=== PATIENT | female | born 1950 | race Caucasian/White ===

== ENCOUNTER → 2016-07-20 | Outpatient (CLI) | payer MEDICARE, BC | END | disposition home or self-care (01) | LOC: HKI 08:50 | PROVIDERS: ATTEND Orthopaedic Surgery | DX: M87.152 Osteonecrosis due to drugs, left femur (principal); M25.552 Pain in left hip; M87.151 Osteonecrosis due to drugs, right femur | CPT/HCPCS: G0463 ==

== ENCOUNTER → 2016-09-07 | Outpatient (CLI) | payer MEDICARE, BC ==
[~2016-09-07] MED LIST: ESCI20TA PO; GABA300C16 PO; LEVO25TA59 PO; MORP15TA92 PO
== END | disposition home or self-care (01) ==
LOC: HKI 09:48
PROVIDERS: ATTEND Orthopaedic Surgery
DX: Z01.818 Encounter for other preprocedural examination (principal); M87.152 Osteonecrosis due to drugs, left femur; M25.552 Pain in left hip; M87.151 Osteonecrosis due to drugs, right femur
CPT/HCPCS: G0463

== ENCOUNTER 2016-09-13 05:37 | Inpatient (IN) | payer MEDICARE, BC ==
[2016-09-07 14:30] VITALS: BMI 23.5
[~2016-09-13] VITALS: Ht 170.2 cm; Wt 67.8 kg
[2016-09-13] VITALS (22 sets, daily range): BP systolic 128–163; BP diastolic 53–79; PULSE 72–88; RESP 14–25; Ht 170.2 cm; Wt 67.8 kg
[~2016-09-13 05:37] MED LIST changes: +MELOXICAM 15 MG TAB PO ONE; +PREGABALIN 300 MG PO X1 PO ONE; +TRANEXAMIC ACID 680 MG in SOD CHLORIDE 0.9% 93.2 ML IV ONE; +VANCOMYCIN 1 GM/NS 250 ML X1 BEFORE INCISION IVPB ONE; +oxyCODONE (CR) 10 MG TAB [oxyCONTIN] X1 DOSE PO ONE; +traMADOL 50 MG TAB X 1 DOSE PO ONE
[2016-09-13] MEDS: LACTATED RINGER'S 1,000 ML IV SCH ×4 (06:24→19:30)
[2016-09-13] MEDS ORDERED: BACITRACIN 50000 UNITS INJ ONE (06:36)
[2016-09-13] MEDS ORDERED: EXPAREL NOTE (BUPIVICAINE LIPOSOMAL) XX SCH (07:00)
[2016-09-13] MEDS ORDERED: LIDOCAINE 2% (SDV) 5 ML INJ ONE (07:00)
[2016-09-13] MEDS ORDERED: PROPOFOL 1000 MG INJ ONE (07:00)
[2016-09-13] MEDS ORDERED: TRANEXAMIC ACID 680 MG in SOD CHLORIDE 0.9% 100 ML IVPB ONE ×3 (07:00→16:00)
[2016-09-13] MEDS ORDERED: BUPIVACAINE LIPOSOME/PF 266 MG/20 ML VIAL INFIL ONE (07:00)
[2016-09-13] MEDS ORDERED: PAIN COCKTAIL - VANCOMYCIN IRR ONE ×7 (07:00)
[2016-09-13] MEDS ORDERED: ETOMIDATE 20 MG INJ ONE (07:00)
[2016-09-13] MEDS ORDERED: SODIUM CL BACTERIOSTATIC 30 ML INJ ONE (07:05)
[2016-09-13] MEDS ORDERED: POLYMYXIN B 500000 UNIT INJ ONE (07:05)
[2016-09-13] MEDS ORDERED: VANCOMYCIN 1 GM INJ ONE (07:05)
[2016-09-13] MEDS ORDERED: CEFAZOLIN 1 GM INJ ONE (07:06)
[2016-09-13] MEDS ORDERED: ROCURONIUM 50 MG INJ ONE (07:06)
[2016-09-13] MEDS ORDERED: NEOSTIGMINE 3 MG/3 ML SYRINGE ONE (07:06)
[2016-09-13] MEDS ORDERED: MIDAZOLAM 1 MG/ML 2 ML INJ ONE (07:06)
[2016-09-13] MEDS ORDERED: GLYCOPYRROLATE 0.4 MG INJ ONE (07:06)
[2016-09-13] MEDS ORDERED: PROPOFOL 20 ML ONE (07:06)
[2016-09-13] MEDS ORDERED: FENTAnyl 50 MCG/ML VIAL ONE (07:07)
[2016-09-13] MEDS ORDERED: DEXAMETHASONE 4 MG/ML 1 ML INJ ONE (07:07)
[2016-09-13] MEDS ORDERED: ONDANSETRON 4 MG INJ ONE (07:07)
[2016-09-13] MEDS ORDERED: TIZA4TAB PO (07:18)
--- NOTE | 2016-09-13 07:18 | HPN ---
Date/Time of Note Date/Time of Note DATE: 09/13/16 TIME: 07:18 Interval H&P Admission Note Pt. seen H&P reviewed: No system changes No change in H&P from 09/05/16 by UMA Hammer MD Sep 13, 2016 07:18
[2016-09-13] MEDS ORDERED: IPRATROPIUM (HFA) 12.9 GM INHALER INH SCH (09:00)
[2016-09-13] MEDS ORDERED: LABETALOL HCL 20MG INJ IV PRN (09:30)
[2016-09-13] MEDS ORDERED: EPHEDrine SULFATE 50 MG/5 ML SYG IV PRN (09:30)
[2016-09-13] MEDS ORDERED: HYDROmorphONE (0.2 MG/ML) 10ML SYG IV PRN ×3 (09:30)
[2016-09-13] MEDS ORDERED: DIPHENHYDRAMINE 50 MG INJ IV PRN (09:30)
[2016-09-13] MEDS ORDERED: FENTAnyl 50 MCG/ML VIAL IV PRN ×3 (09:30)
[2016-09-13] MEDS ORDERED: MIDAZOLAM 1 MG/ML 2 ML INJ IV PRN (09:30)
[2016-09-13] MEDS ORDERED: TRIMETHOBENZAMIDE 100 MG/ML VIAL IM PRN (09:30)
[2016-09-13] MEDS ORDERED: ONDANSETRON 4 MG INJ IV PRN ×2 (09:30→10:00)
[2016-09-13] MEDS ORDERED: MEPERIDINE 25 MG INJ IV PRN (09:30)
[2016-09-13] MEDS ORDERED: hydrALAzine 20 MG INJ IV PRN (09:30)
[2016-09-13] MEDS ORDERED: TIZANIDINE 4 MG TAB PO PRN (10:00)
[2016-09-13] MEDS ORDERED: HYDROCODONE/APAP (5/325) TAB PO PRN (10:00)
[2016-09-13] MEDS ORDERED: ASPIRIN (EC) 325 MG TAB PO ONE (10:00)
[2016-09-13] MEDS ORDERED: DIPHENHYDRAMINE 25 MG CAP PO PRN (10:00)
[2016-09-13] MEDS ORDERED: BISACODYL 10 MG SUPP PR PRN (10:00)
[2016-09-13] MEDS ORDERED: MAGNESIUM HYDROXIDE 30ML CUP PO PRN (10:00)
[2016-09-13] MEDS ORDERED: NA PHOSPHATE/BIPHOS 133 ML ENEMA PR PRN (10:00)
--- NOTE | 2016-09-13 10:14 | PN ---
Date/Time of Note Date/Time of Note DATE: 09/13/16 TIME: 10:02 Assessment/Plan Lines/Catheters IV Catheter Type (from Nrsg): Saline Lock Assessment/Plan Assessment/Plan Stable in PACU, s/p left anterior PRASHANTH -continue vancomycin until drains removed -pain meds as needed. Patient has known chronic pain issues -ASA/SCDs for DVT prophylaxis -OOB with PT -check AM labs -monitor drain -d/c amin in AM XR of the left hip shows good alignment with no fractures or dislocations identified Subjective 24 Hr Interval Summary Stable in PACU. Moving all extremities. Denies pain but complaining of headache. Exam/Review of Systems Vital Signs Vitals Vital Signs Date Time Temp Pulse Resp B/P Pulse Ox O2 Delivery O2 Flow Rate FiO2 09/13/16 06:52 98.6 74 18 147/68 96 Room Air Exam Free Text/Dictation Hemovac: minimal Dressing dry Incision clean, dry, and intact without redness or drainage 5/5 Quadriceps, Tibialis Anterior, EHL, Gastroc, Soleus, Peroneals Normal sensation Palpable DT/PT, CR <2 sec No distal edema SAVANNAH HERRERA PA-C Sep 13, 2016 10:12
[2016-09-13 10:25] LABS: HEMATOCRIT 34.4 % (37.0-47.0); HEMOGLOBIN 10.5 g/dl (12.0-16.0)
--- NOTE | 2016-09-13 10:29 | OPR ---
DATE OF OPERATION: 09/13/2016 PREOPERATIVE DIAGNOSIS: Left hip osteoarthritis. POSTOPERATIVE DIAGNOSIS: Left hip osteoarthritis. OPERATION PERFORMED: Left anterior total hip arthroplasty. SURGEON: Uma Perez MD CHAIR PAD MAKER: NICKI Ramos COMPONENTS USED: DePuy size 52 mm Gription [place] cup, 52/36 neutral AltrX polyethylene liner, si ze 5 standard Actis stem, 36 +1.5 ceramic head. ANESTHESIA: Spinal plus general endotracheal intubation, plus periarticular injection. ANESTHESIOLOGIST: Scott Davis MD ESTIMATED BLOOD LOSS: 300 mL. INTRAVENOUS FLUIDS: 2000 mL of crystalloid. SPECIMENS: Femoral head. DRAINS: Hemovac x1. COMPLICATIONS: None. DISPOSITION: The patient tolerated the procedure well and was taken to the recovery room in stable condition. INDICATIONS: The patient is a 66-year-old woman who has had progressive worsening pain in the left hip with radiographic evidence of severe osteoarthritis. She has failed nonsurgical means of treatm ent to control her pain including activity modifications, pain medications and ambulatory assist dev ices. Despite these measures, she has had worsening pain and I felt she would benefit from a total hip arthroplasty through an anterior approach. The risks, benefits, and alternatives of the procedure were explained in detail to the patient. I e xplained the risks of the surgery to include, but not be limited to: bleeding and possible need for blood transfusion; infection; pain; stiffness; neurovascular injury with possible numbness, weakness , and/or paralysis anywhere from the hip down to the toes; fracture; instability; dislocation; leg l ength inequality; wear and/or loosening of the prosthesis and possible need for future revision; blo od clots; pulmonary embolism; and anesthetic complications such as heart attack, stroke, GI bleed, p neumonia, and/or . Ample time was allowed for the patient to ask questions, all of which were addressed and answered. The patient understood the risks involved and wished to proceed. Informed c onsent was signed prior to the procedure. PROCEDURE: The patient's left hip was initialed with a marking pen in the preoperative area to ident umang the correct operative site. The patient was brought to the operating room and [facility] where a spinal anesthetic was administered. The patient was t hen anesthetized and intubated. A Carter catheter was placed. Both feet were placed into well padde d boots which were then placed into the leg holders of the traction booms. A timeout was performed to confirm that the left side was the correct operative site. The patient was given 2 g of intraven ous Ancef within one hour prior to the procedure. The operative hip was prepped and draped in the u sual sterile fashion. A 10 cm oblique incision was made over the anterior aspect of the hip and carried down through subcu taneous tissue and fat with sharp dissection. The tensor fascia christoph was incised along the length o f the wound. The tensor fascia muscle was retracted laterally and the sartorius medially. The anter ior circumflex vessels were identified and tied off with 2-0 silk suture and coagulated with the [facility] [place] park interpreter. The rectus femoris was elevated off the anterior capsule and an anterior capsu lectomy performed. A femoral neck osteotomy was made and the head removed from the acetabulum. The acetabulum was denuded of cartilage circumferentially, as was the femoral head. Retractors were pl aced around the acetabulum. The remnants of the labrum and ligamentum teres were excised. I reamed the acetabulum to the medial wall and then went into an anatomic position and increased the reamer size in 2 mm increments until I got a good bite and was down to bleeding subchondral bone. The [place] cup was opened and impacted into the acetabulum and sat flush circumferentially, gettin g a good bite. C-arm imaging showed it had about 40 to 45 degrees of abduction and 20 degrees of ant eversion. Please note no acetabular screw was placed. The real liner was opened and impacted into the acetabulum and sat flush circumferentially. Attention was turned towards the femur. The operative leg was carefully lowered to the floor with the leg adducted. The foot was then exter victorina rotated to approximately 110 degrees. A posteromedial release was performed to optimize expos ure. The femoral hook was placed underneath the proximal femur and the hydraulic lift was then used to elevate the femur up out of the wound. The mark cutter osteotome was used to remove the remai miriam overhanging greater trochanter. The femur was then broached, going up in one size increments u ntil it sat flush with the neck cut and a stable fit was achieved. The trial neck and head were ass embled and reduced into the acetabulum. Fluoroscopic imaging showed the components to be in good pos ition and the leg lengths and offsets to be equal. At this point, the trial was dislocated and the trial broach removed. The canal was irrigated and d ried. The real stem was opened and impacted into the femur. The trunnion was irrigated and dried, a nd the real femoral head was impacted onto the trunnion, and reduced into the acetabulum. The soft tissues were infiltrated with a mixture of 150 mg of 0.5% bupivacaine, 8 mg of Duramorph, 3 00 mcg of epinephrine, 30 mg of Toradol, 100 mcg of clonidine, 750 mg of cefuroxime and 86 mL of nor mal saline, followed by an injection of 266 mg of liposomal bupivacaine. At this point the hip was irrigated with a mixture of Betadine/saline and then antibiotic saline with pulsatile lavage. A Hem ovac drain was placed in the deep portion of the wound and brought out the anterolateral thigh. Ther e was good hemostasis. The tensor fascia christoph was repaired with a running #1 Vicryl. The deep fat layer was irrigated and closed with 2-0 Stratafix and the subcutaneous layer closed with 3-0 Vicryl and the skin was closed with shaka and then sealed with Dermabond. The drain was secured with 3-0 nylon. The sponge and needle counts were correct at the end of the case. The wound was covered with an occ lusive dressing. The patient was awakened, extubated, and taken to the recovery room in stable cond ition. Dictated By: UMA PARK/COURTNEY Conf#: [id number] DID#: [id number]
--- NOTE | 2016-09-13 10:32 | RADRPT ---
PROCEDURE: XR Pelvis CLINICAL INDICATION: Postop left T H R TECHNIQUE: An AP radiograph was submitted. COMPARISON: Comparison to the intraoperative left hip study done earlier on the same date. FINDINGS: Osseous structures: A well seated total left hip replacement is again evident. The osseous elements otherwise appear rarefied but intact. Joint spaces: The hip joints appear unremarkable. There is no distension of either joint capsule. the sacroiliac joints appear unremarkable without significant erosions or sclerosis. Soft tissues: A drain has been placed and subcutaneous air is seen lateral to the left hip. IMPRESSION: 1. A well seated total left hip replacement is again evident, a drain has been placed and subcutane ous air is evident. 2. Osteoporosis. Physician Renard Date Time Electronically viewed and signed by Physician Renard on 09/13/2016 10:32 RH/
--- NOTE | 2016-09-13 10:35 | RADRPT ---
PROCEDURE: RF intraoperative images of left hip CLINICAL INDICATION: Right hip arthroplasty TECHNIQUE: 12 x-ray images were obtained intraoperatively during a left hip arthroplasty procedure . COMPARISON: AP pelvis done 05/16/2016 FINDINGS: 12 x-ray images were obtained intraoperatively for localization during a total left hip replacement. 0.8 minutes of fluoroscopy time was utilized by Dr. Perez during the procedure. IMPRESSION: Xray images obtained intraoperatively for localization during a total left hip replacement. Physician Renard Date Time Electronically viewed and signed by Physician Renard on 09/13/2016 10:34 RH/
[2016-09-13 10:39] LABS: CALCIUM 9.2 mg/dl (8.4-10.2); CREATININE 0.78 mg/dl (0.44-1.00); POTASSIUM 4.1 mmol/L (3.5-5.1)
--- NOTE | 2016-09-13 13:26 | OPR ---
Date/Time of Note Date/Time of Note DATE: 09/13/16 TIME: 13:25 Operative Report Procedure Date: Sep 13, 2016 Preoperative Diagnosis Left Hip OA Postoperative Diagnosis Same Operation Performed Left Anterior PRASHANTH Surgeon: UMA TALLEY MD field research assistant: SAVANNAH HERRERA PA-C Anesthesia: general, spinal Anesthesiologist: Scott Davis M.D. Estimated Blood Loss: 250 - 300 ml's Specimens Bone and soft tissue Tubes/Drains Hemovac x 1 Complications: None Pt Condition Post Procedure: stable Disposition: PACU UMA TALLEY MD Sep 13, 2016 13:26
[2016-09-13] MEDS ORDERED: TOBRAMYCIN 0.3% 5 ML OPH RIGHT EYE SCH (13:30)
--- NOTE | 2016-09-13 14:03 | CONS ---
DATE OF ADMISSION: 09/13/2016 DATE OF CONSULTATION: 09/13/2016 Thank you, Dr. Perez, for asking me to participate in medical management of this patient. REASON FOR CONSULTATION: To help manage the patient's chronic pain syndrome, COPD, coronary artery disease, porphyria cutanea tarda. HISTORY OF PRESENT ILLNESS: This 66-year-old female has been having increasing left hip pain. She has been diagnosed with severe left hip osteoarthritis. The pain has gotten worse and the patient h as had difficulty walking. She has failed medical therapy and decided to undergo a left total hip r eplacement, which was done this morning by Dr. Perez. The patient is awake and alert. She answers questions appropriately. The patient is complaining of right eye pain since having surgery. She i s able to see out of the eye; however, the eye is painful on movement. I did speak to the patient's primary care physician, Dr. Ancelmo Blank. Dr. Blank was able to send me the patient's progres s notes which detail the patient's past medical history and current medication. PAST MEDICAL HISTORY: The patient has the following past medical history: 1. Chronic low back pain, neck pain. Chronic pain syndrome. 2. Bilateral hip pain, left worse than right due to osteonecrosis, gait impairment due to hip pain. 3. Severe chronic obstructive pulmonary disease with longstanding smoking history, 56 year smoking history up to 3 packs a day, quit in July of 2016. She did undergo a cardiac catheterization in November of 2010 which showed mild coronary artery disease. 4. Porphyria cutanea tarda which has been stable. 5. Anxiety, depression. 6. Hyperthyroidism, status post radioactive iodine therapy and now on Synthroid. 7. She has a history of multiple falls related to alcohol. 8. She did have a fungal respiratory infection while traveling in [place] that was at least 10 years ago. 9. History of mild antral gastritis with Rosa Isela esophagitis. 10. She did undergo a stress Cardiolite test which showed very mild apical lateral ischemic changes . 11. Vitamin B12 deficiency. 12. Vitamin D deficiency. 13. Hypothyroidism. PAST SURGICAL HISTORY: Back surgery, removal of electronic implant, colonoscopy, neck surgeries x2, shattering of ankle, history of Staph infection with removal of metal in 2004, laparoscopic cholecy stectomy, open appendectomy, diskectomy of the back x2. FAMILY HISTORY: Father at age 81 of emphysema. Mother at age 52 overdose of meds . SOCIAL HISTORY: The patient does not smoke. She has been 4 times. 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 CURRENT MEDICATIONS: 1. MS Contin 30 mg twice a day. 2. Gabapentin 600 mg in the morning and 900 mg at night. 3. Tizanidine 4 mg tablets at bedtime. 4. Lexapro 30 mg a day. 5. Advair Diskus 250 one puff twice a day. 6. Combivent 2 puffs daily every 4 hours p.r.n. 7. Azelastine nasal 2 sprays intranasally daily. 8. Vitamin D 50,000 units once a week. 9. Cyanocobalamin 1000 mcg intramuscularly monthly. 10. Synthroid 25 mcg a day. ALLERGIES: SULFA CAUSES HIVES. QUESTIONABLE ALLERGY TO PENICILLIN. PHYSICAL EXAMINATION: GENERAL: At this time reveals a well-developed elderly female in no apparent distress. VITAL SIGNS: Pulse of 88, respirations 18, blood pressure 142/71, O2 saturation of 97% on 3 liter na quincy cannula. HEENT: Head normocephalic. Eyes: There is some very slight bruising over the upper and lower eyeli d on the right. The patient has some pain on opening the right eye, but her vision is clear. NOSE AND MOUTH: Normal. NECK: Supple. No neck vein distention. LUNGS: Diminished breath sounds bilaterally, no rales or wheezes. HEART: Regular rhythm. No murmurs, gallops or rubs. ABDOMEN: Soft, nontender. EXTREMITIES: No peripheral edema. IMPRESSION: The patient's vital signs are stable postoperatively. PLAN: Her blood pressure is controlled. Her O2 sat is acceptable on oxygen. The patient does have some right eye irritation and I suspect that she may have an abrasion to the right eye. I will man age the patient's chronic pain syndrome, COPD, hypothyroidism. PLAN: 1. Resume some routine medications. 2. Check labs in the morning. 3. Postop hip replacement protocol. 4. I will follow the patient along with you. I will order a bandage over the right eye and some To brex eye drops to prevent infection. Dictated By: BRETT DOHERTY MD, ND/NTS Conf#: [id number] DID#: [id number]
[2016-09-13] MEDS: ACETAMINOPHEN 1000MG/100ML IV 100 ML IVPB SCH ×2 (14:50→18:23)
[2016-09-13] MEDS: traMADol 50 MG TAB PO SCH ×2 (14:51→18:22)
[2016-09-13] MEDS: TOBRAMYCIN 0.3% 5 ML OPH RIGHT EYE SCH ×2 (16:38→21:12)
[2016-09-13] MEDS: HYDROmorphONE 1 MG/ML SYG IV PRN (16:40)
[2016-09-13] MEDS: PANTOPRAZOLE (EC) 40 MG TAB PO SCH (18:22)
[2016-09-13] MEDS ORDERED: VANCOMYCIN 1 GM (PMX) 250 ML IVPB SCH (18:30)
[2016-09-13] MEDS: morphine (ER) 15 MG TAB PO SCH (21:11)
[2016-09-13] MEDS: DOCUSATE SODIUM 100 MG CAP PO SCH (21:11)
[2016-09-13] MEDS: GABAPENTIN 300 MG CAP PO SCH (21:12)
[2016-09-14] MEDS: ACETAMINOPHEN 1000MG/100ML IV 100 ML IVPB SCH ×2 (00:04→05:54)
[2016-09-14] MEDS: traMADol 50 MG TAB PO SCH ×4 (00:04→18:35)
[2016-09-14] MEDS: LACTATED RINGER'S 1,000 ML IV SCH ×6 (01:30→21:30)
[2016-09-14 05:19] LABS: HEMATOCRIT 28.4 % (37.0-47.0)
[2016-09-14 05:23] LABS: CREATININE 0.8 mg/dl (0.44-1.00)
[2016-09-14 05:24] LABS: CALCIUM 9.1 mg/dl (8.4-10.2)
[2016-09-14] MEDS: PANTOPRAZOLE (EC) 40 MG TAB PO SCH ×2 (05:54→18:35)
[2016-09-14] MEDS: LEVOTHYROXINE 25 MCG TAB PO SCH (06:35)
[2016-09-14 06:40] LABS: ADD UMIC NO; URINE BILIRUBIN (Dip) NEGATIVE (NEGATIVE); URINE BLOOD (Dip) NEGATIVE (NEGATIVE); URINE COLOR LT. YELLOW (YELLOW); URINE GLUCOSE (Dip) NEGATIVE (NEGATIVE); URINE KETONES (Dip) NEGATIVE (NEGATIVE); URINE LEUKOCYTE ESTERASE (Dip) NEGATIVE (NEGATIVE); URINE NITRITE (Dip) NEGATIVE (NEGATIVE); URINE TOTAL PROTEIN (Dip) NEGATIVE (NEGATIVE); URINE UROBILINOGEN (Dip) 0.2 E.U./dL (0.1-1.0)
[2016-09-14 07:58] VITALS: BP 130/61; RESP 20
--- NOTE | 2016-09-14 08:39 | CONS ---
Date/Time of Note Date/Time of Note DATE: 09/14/16 TIME: 08:35 Assessment/Plan Assessment/Plan Chief Complaint/Hosp Course #1 she is one day postop left total hip replacement. #2 her right eye is much improved. I was concerned that she may have a corneal abrasion; however, she is not having pain this morning and overall feels better. I will remove the right eye patch but will continue Tobrex eyedrops. #3 continue her medication and physical therapy as tolerated. Problems: Consultation Date/Type/Reason Admit Date/Time Sep 13, 2016 at 05:37 Initial Consult Date 24 HR Interval Summary Free Text/Dictation She is one day postop left total hip replacement. Her right eye pain is much improved. She is now able to open the eye and does not have pain. Constitutional: improved, no complaints Exam/Review of Systems Vital Signs Vitals Vital Signs Date Time Temp Pulse Resp B/P Pulse Ox O2 Delivery O2 Flow Rate FiO2 09/14/16 07:58 97.7 64 20 130/61 98 09/13/16 20:10 Nasal Cannula 2.0 Intake and Output 09/13/16 09/13/16 09/14/16 15:00 23:00 07:00 Intake Total 2000 ml 2013.6 ml 1950 ml Output Total 820 ml 1260 ml 3240 ml Balance 1180 ml 753.6 ml -1290 ml Exam Constitutional: alert, oriented, well developed Eyes: EOMI, nl conjunctiva Respiratory: clear to auscultation, diminished breath sounds Cardiovascular: regular rate and rhythm Musculoskeletal: nl extremities to inspection Results Result Diagram: 09/14/16 0438 09/14/16 0438 Results 24 hrs Laboratory Tests Test 09/13/16 10:16 09/14/16 04:38 09/14/16 05:00 Hemoglobin 10.5 L 9.0 L Hematocrit 34.4 L 28.4 L Sodium Level 138 140 Potassium Level 4.1 4.0 Chloride Level 106 103 Carbon Dioxide Level 29 28 Anion Gap 7 L 13 Blood Urea Nitrogen 11 12 Creatinine 0.78 0.80 Glucose Level 156 98 # Calcium Level 9.2 9.1 Urine Color LT. YELLOW Urine Clarity CLEAR Urine pH 6.0 Urine Specific [place] <=1.005 L Urine Ketones NEGATIVE Urine Nitrite NEGATIVE Urine Bilirubin NEGATIVE Urine Urobilinogen 0.2 E.U./dL Urine Leukocyte Esterase NEGATIVE Urine Hemoglobin NEGATIVE Urine Glucose NEGATIVE Urine Total Protein NEGATIVE Medications Medications Current Medications Lactated Ringer's (Lr) 1,000 ml @ 100 mls/hr Q10H IV Last administered on 06:24; Admin Dose 100 MLS/HR; Start 09/13/16 at 05:30 Miscellaneous Information 1 ea NOTE XX ; Start 09/13/16 at 07:00; Stop 09/17/16 at 06:59 Escitalopram Oxalate (Lexapro) 30 mg DAILY PO ; Start 09/14/16 at 09:00 Gabapentin (Neurontin) 600 mg DAILY PO ; Start 09/14/16 at 09:00 Gabapentin (Neurontin) 900 mg QHS PO Last administered on 09/13/16 21:12; Admin Dose 900 MG; Start 09/13/16 at 21:00 Tizanidine HCl 8 mg 8 mg QHS PRN PO SPASTICITY; Start 09/13/16 at 10:00 Lactated Ringer's 1,000 ml @ 125 mls/hr Q8H IV Last administered on 09/14/16 03:39; Admin Dose 125 MLS/HR; Start 09/13/16 at 11:30 Acetaminophen (Ofirmev 1000mg/ 100ml Iv) 100 ml @ 400 mls/hr Q6 IVPB Last administered on 09/14/16 05:54; Admin Dose 400 MLS/HR; Start 09/13/16 at 12:00; Stop 09/14/16 at 11:59 Tramadol HCl (Ultram) 50 mg Q6 PO Last administered on 09/14/16 05:54; Admin Dose 50 MG; Start 09/13/16 at 12:00; Stop 09/16/16 at 11:59 Acetaminophen/ Hydrocodone Bitart ([place] (5/325)) 1 tab Q4H PRN PO PAIN LEVEL 1 -3; Start 09/13/16 at 10:00 Acetaminophen/ Hydrocodone Bitart ([place] (5/325)) 2 tab Q4H PRN PO PAIN LEVEL 4 -7; Start 09/13/16 at 10:00 Hydromorphone HCl (Dilaudid) 1 mg Q3H PRN IV PAIN LEVEL 8-10 Last administered on 09/13/16 16:40; Admin Dose 1 MG; Start 09/13/16 at 10:00 Ondansetron HCl (Zofran Inj) 4 mg Q6H PRN IV NAUSEA AND/OR VOMITING; Start 09/13 at 10:00 Bisacodyl (Dulcolax Supp) 10 mg Q12H PRN DE CONSTIPATION; Start 09/13/16 at 10: 00 Magnesium Hydroxide (Milk Of Mag) 30 ml BID PRN PO CONSTIPATION; Start 09/13/16 at 10:00 Sodium Biphosphate/ Sodium Phosphate (Fleet Enema) 133 ml DAILY PRN DE CONSTIPATION; Start 09/13/16 at 10:00 Docusate Sodium (Colace) 100 mg BID PO Last administered on 09/13/16 21:11; Admin Dose 100 MG; Start 09/13/16 at 21:00 Diphenhydramine HCl (Benadryl) 25 mg Q6H PRN PO PRURITUS; Start 09/13/16 at 10: 00 Aspirin (Ecotrin) 325 mg BID PO ; Start 09/14/16 at 09:00 Pantoprazole (Protonix Tab) 40 mg BID@06,18 PO Last administered on 09/14/16 05 :54; Admin Dose 40 MG; Start 09/13/16 at 18:00 Morphine Sulfate (Ms Contin (Er)) 45 mg QAM PO ; Start 09/14/16 at 09:00 Morphine Sulfate (Ms Contin (Er)) 15 mg QPM PO Last administered on 09/13/16 21 :11; Admin Dose 15 MG; Start 09/13/16 at 21:00 Tobramycin Sulfate 1 drop 1 drop QID RIGHT EYE Last administered on 09/13/16 21 :12; Admin Dose 1 DROP; Start 09/13/16 at 16:30 Vancomycin HCl (Vancocin) 250 ml @ 125 mls/hr Q12H IVPB ; Start 09/14/16 at 09: 00; Stop 09/14/16 at 10:59 BRETT DOHERTY MD Sep 14, 2016 08:39
--- NOTE | 2016-09-14 08:44 | PN ---
Date/Time of Note Date/Time of Note DATE: 09/14/16 TIME: 08:43 Assessment/Plan Lines/Catheters IV Catheter Type (from Nrsg): Peripheral IV Carter in Place (from Nrsg): Yes Assessment/Plan Assessment/Plan Stable POD #1, s/p left anterior PRASHANTH -d/c abx -pain meds as needed -ASA/SCDs -OOB with PT -drain removed -check AM labs -d/c planning. Will plan to go home upon discharge Subjective 24 Hr Interval Summary No acute overnight events. Had some eye discomfort yesterday which resolved with eye patch and tobradex drops. Denies any hip pain. Progressing well with PT. VSS, afebrile. Will plan to go home upon discharge. Exam/Review of Systems Vital Signs Vitals Vital Signs Date Time Temp Pulse Resp B/P Pulse Ox O2 Delivery O2 Flow Rate FiO2 09/14/16 07:58 97.7 64 20 130/61 98 09/13/16 20:10 Nasal Cannula 2.0 Intake and Output 09/13/16 09/13/16 09/14/16 15:00 23:00 07:00 Intake Total 2000 ml 2013.6 ml 1950 ml Output Total 820 ml 1260 ml 3240 ml Balance 1180 ml 753.6 ml -1290 ml Exam Free Text/Dictation Hemovac: 120cc Dressing dry Incision clean, dry, and intact without redness or drainage 10/14 Quadriceps, Tibialis Anterior, EHL, Gastroc, Soleus, Peroneals Normal sensation Palpable DT/PT, CR <2 sec No distal edema Results Result Diagram: 09/14/16 0438 09/14/16 0438 SAVANNAH HERRERA PA-C Sep 14, 2016 08:44
[2016-09-14] MEDS: ASPIRIN (EC) 325 MG TAB PO SCH ×2 (08:50→21:05)
[2016-09-14] MEDS: ESCITALOPRAM 10 MG TAB PO SCH (08:50)
[2016-09-14] MEDS: DOCUSATE SODIUM 100 MG CAP PO SCH ×2 (08:50→21:05)
[2016-09-14] MEDS: GABAPENTIN 300 MG CAP PO SCH ×2 (08:51→21:04)
[2016-09-14] MEDS: morphine (ER) 30 MG TAB PO SCH (08:51)
[2016-09-14] MEDS: TOBRAMYCIN 0.3% 5 ML OPH RIGHT EYE SCH ×4 (08:52→21:05)
[2016-09-14] MEDS ORDERED: morphine (ER) 15 MG TAB PO SCH ×3 (09:00)
[2016-09-14] MEDS ORDERED: VANCOMYCIN 1 GM (PMX) 250 ML IVPB SCH (09:00)
[2016-09-14] MEDS: HYDROCODONE/APAP (5/325) TAB PO PRN ×2 (11:38→22:13)
[2016-09-14] MEDS ORDERED: ALBUTEROL HFA 8 GM INHALER INH PRN (20:30)
[2016-09-14 20:52] VITALS: BP 145/67; RESP 20
[2016-09-14] MEDS: morphine (ER) 15 MG TAB PO SCH (21:05)
[2016-09-14] MEDS: HYDROmorphONE 1 MG/ML SYG IV PRN (21:11)
[2016-09-14] MEDS: NACL 0.9% 3 ML SYG IV SCH (22:08)
[2016-09-15] MEDS: traMADol 50 MG TAB PO SCH ×5 (00:52→23:59)
[2016-09-15] MEDS: HYDROCODONE/APAP (5/325) TAB PO PRN ×5 (02:30→22:55)
[2016-09-15] MEDS: LACTATED RINGER'S 1,000 ML IV SCH ×3 (03:30→17:30)
[2016-09-15 05:48] LABS: HEMATOCRIT 30.3 % (37.0-47.0); HEMOGLOBIN 9.4 g/dl (12.0-16.0)
[2016-09-15] MEDS: LEVOTHYROXINE 25 MCG TAB PO SCH (06:25)
[2016-09-15] MEDS: PANTOPRAZOLE (EC) 40 MG TAB PO SCH ×2 (06:26→18:29)
[2016-09-15 06:32] LABS: CREATININE 0.97 mg/dl (0.44-1.00)
[2016-09-15 06:33] LABS: CALCIUM 9.1 mg/dl (8.4-10.2)
[2016-09-15 06:45] LABS: POTASSIUM 3.9 mmol/L (3.5-5.1)
[2016-09-15 08:11] VITALS: BP 156/70; RESP 20
[2016-09-15] MEDS: DOCUSATE SODIUM 100 MG CAP PO SCH ×2 (09:20→21:34)
[2016-09-15] MEDS: morphine (ER) 30 MG TAB PO SCH (09:21)
[2016-09-15] MEDS: ESCITALOPRAM 10 MG TAB PO SCH (09:21)
[2016-09-15] MEDS: ASPIRIN (EC) 325 MG TAB PO SCH ×2 (09:21→21:34)
[2016-09-15] MEDS: GABAPENTIN 300 MG CAP PO SCH ×2 (09:21→21:33)
[2016-09-15] MEDS: TOBRAMYCIN 0.3% 5 ML OPH RIGHT EYE SCH ×4 (09:22→21:32)
--- NOTE | 2016-09-15 10:24 | CONS ---
Date/Time of Note Date/Time of Note DATE: 09/15/16 TIME: 10:20 Assessment/Plan Assessment/Plan Chief Complaint/Hosp Course #1 she is one day postop left total hip replacement. #2 her right eye is much improved. I was concerned that she may have a corneal abrasion; however, she is not having pain this morning and overall feels better. I will remove the right eye patch but will continue Tobrex eyedrops. #3 COPD , she is now wheezing , I will start Duoneb and Advair ,order CXR . Problems: Consultation Date/Type/Reason Admit Date/Time Sep 13, 2016 at 05:37 Type of Consultation: medicine 24 HR Interval Summary Free Text/Dictation She is having L hip pain . Exam/Review of Systems Vital Signs Vitals Vital Signs Date Time Temp Pulse Resp B/P Pulse Ox O2 Delivery O2 Flow Rate FiO2 09/15/16 08:11 98.2 78 20 156/70 94 09/13/16 20:10 Nasal Cannula 2.0 Intake and Output 09/14/16 09/14/16 09/15/16 15:00 23:00 07:00 Intake Total 1350 ml 580 ml Output Total 1250 ml Balance 100 ml 580 ml Exam Constitutional: alert, oriented, well developed Respiratory: wheezing Cardiovascular: regular rate and rhythm Gastrointestinal: soft Musculoskeletal: nl extremities to inspection Results Result Diagram: 09/15/16 0451 09/15/16 0451 Results 24 hrs Laboratory Tests Test 09/15/16 04:51 Hemoglobin 9.4 L Hematocrit 30.3 L Sodium Level 142 Potassium Level 3.9 Chloride Level 103 Carbon Dioxide Level 29 Anion Gap 14 Blood Urea Nitrogen 16 Creatinine 0.97 Glucose Level 97 Calcium Level 9.1 Medications Medications Current Medications Lactated Ringer's (Lr) 1,000 ml @ 100 mls/hr Q10H IV Last administered on 06:24; Admin Dose 100 MLS/HR; Start 09/13/16 at 05:30 Miscellaneous Information 1 ea NOTE XX ; Start 09/13/16 at 07:00; Stop 09/17/16 at 06:59 Escitalopram Oxalate (Lexapro) 30 mg DAILY PO Last administered on 09/15/16 09: 21; Admin Dose 30 MG; Start 09/14/16 at 09:00 Gabapentin (Neurontin) 600 mg DAILY PO Last administered on 09/15/16 09:21; Admin Dose 600 MG; Start 09/14/16 at 09:00 Gabapentin (Neurontin) 900 mg QHS PO Last administered on 09/14/16 21:04; Admin Dose 900 MG; Start 09/13/16 at 21:00 Tizanidine HCl (Zanaflex) 8 mg QHS PRN PO SPASTICITY; Start 09/13/16 at 10:00 Tramadol HCl (Ultram) 50 mg Q6 PO Last administered on 09/15/16 06:26; Admin Dose 50 MG; Start 09/13/16 at 12:00; Stop 09/16/16 at 11:59 Acetaminophen/ Hydrocodone Bitart ([place] (5/325)) 1 tab Q4H PRN PO PAIN LEVEL 1 -3; Start 09/13/16 at 10:00 Acetaminophen/ Hydrocodone Bitart ([place] (5/325)) 2 tab Q4H PRN PO PAIN LEVEL 4 -7 Last administered on 09/15/16 09:21; Admin Dose 2 TAB; Start 09/13/16 at 10:00 Hydromorphone HCl (Dilaudid) 1 mg Q3H PRN IV PAIN LEVEL 8-10 Last administered on 09/14/16 21:11; Admin Dose 1 MG; Start 09/13/16 at 10:00 Ondansetron HCl (Zofran Inj) 4 mg Q6H PRN IV NAUSEA AND/OR VOMITING; Start 09/13 at 10:00 Bisacodyl (Dulcolax Supp) 10 mg Q12H PRN [place] CONSTIPATION; Start 09/13/16 at 10: 00 Magnesium Hydroxide (Milk Of Mag) 30 ml BID PRN PO CONSTIPATION; Start 09/13/16 at 10:00 Sodium Biphosphate/ Sodium Phosphate (Fleet Enema) 133 ml DAILY PRN [place] CONSTIPATION; Start 09/13/16 at 10:00 Docusate Sodium (Colace) 100 mg BID PO Last administered on 09/15/16 09:20; Admin Dose 100 MG; Start 09/13/16 at 21:00 Diphenhydramine HCl (Benadryl) 25 mg Q6H PRN PO PRURITUS; Start 09/13/16 at 10: 00 Aspirin (Ecotrin) 325 mg BID PO Last administered on 09/15/16 09:21; Admin Dose 325 MG; Start 09/14/16 at 09:00 Pantoprazole (Protonix Tab) 40 mg BID@06,18 PO Last administered on 09/15/16 06 :26; Admin Dose 40 MG; Start 09/13/16 at 18:00 Morphine Sulfate (Ms Contin (Er)) 15 mg QPM PO Last administered on 09/14/16 21 :05; Admin Dose 15 MG; Start 09/13/16 at 21:00 Tobramycin Sulfate (Tobrex 0.3% Oph Drop) 1 drop QID RIGHT EYE Last administered on 09/15/16 09:22; Admin Dose 1 DROP; Start 09/13/16 at 16:30 Morphine Sulfate (Ms Contin (Er)) 30 mg QAM PO Last administered on 09/15/16 09 :21; Admin Dose 30 MG; Start 09/14/16 at 09:00 Albuterol (Ventolin Hfa) 1 puff Q4H PRN INH SHORTNESS OF BREATH; Start 09/14/16 at 20:30 BRETT DOHERTY MD Sep 15, 2016 10:24
[2016-09-15] MEDS: ALBUTEROL/IPRATROPIUM (NEB) 3 ML AMP HHN SCH ×3 (10:30→20:47)
[2016-09-15] MEDS: SALMETEROL/FLUTICASONE 250/50 INHA INH SCH ×2 (13:22→21:34)
--- NOTE | 2016-09-15 15:52 | PN ---
Date/Time of Note Date/Time of Note DATE: 09/15/16 TIME: 15:50 Assessment/Plan Lines/Catheters IV Catheter Type (from Nrsg): Saline Lock Carter in Place (from Nrsg): No Assessment/Plan Assessment/Plan Stable POD #2, s/p left anterior PRASHANTH -pain meds as needed -ASA/SCDs for DVT prophylaxis -OOB with PT -check AM labs -dressing changed -plan to discharge home tomorrow Subjective 24 Hr Interval Summary No acute overnight events. Pain well controlled with pre-operative pain management. VSS, afebrile. Progressing well with PT. Will plan to go home tomorrow. Exam/Review of Systems Vital Signs Vitals Vital Signs Date Time Temp Pulse Resp B/P Pulse Ox O2 Delivery O2 Flow Rate FiO2 09/15/16 13:46 76 18 96 21 09/15/16 08:11 98.2 156/70 09/13/16 20:10 Nasal Cannula 2.0 Intake and Output 09/14/16 09/14/16 09/15/16 15:00 23:00 07:00 Intake Total 1350 ml 580 ml Output Total 1250 ml Balance 100 ml 580 ml Exam Free Text/Dictation Dressing dry Incision clean, dry, and intact without redness or drainage 5/5 Quadriceps, Tibialis Anterior, EHL, Gastroc, Soleus, Peroneals Normal sensation Palpable DT/PT, CR <2 sec No distal edema Results Result Diagram: 09/15/16 04509/15/16 045 SAVANNAH HERRERA PA-C Sep 15, 2016 15:52
--- NOTE | 2016-09-15 15:53 | PDOCDIS ---
Discharge Instructions DIAGNOSIS Discharge Diagnosis: s/p left anterior PRASHANTH CONDITION Patient Condition: Good HOME CARE INSTRUCTIONS: Diet Instructions: Regular ACTIVITY: Activity Restrictions: Slowly Increase Activity Rest between Activity Avoid heavy lifting Do not operate Machinery Do not operate Power Tool Avoid Heavy Housework Keep Limb Elevated FOLLOW UP/APPOINTMENTS Appointments follow up in the office on 09/23/16 OTHER ORDERS: Other Orders: S/P Anterior PRASHANTH Physical Therapy: Three times per week at home x 2 weeks Daily in Rehab/SNF WB STATUS: WBAT Strengthening exercises for both upper and un-operated lower extremities. 1. Gait training with front wheeled walker 2. Wide base gait, no pivot turns. 3. Abductor strengthening. 4. Quadriceps and hamstring strengthening. 5. May switch to cane in contra lateral hand 6 weeks after surgery. 6. Physical Therapy can open case if nursing is not available. 7. Ice Packs while at rest to surgical wound for 20 minutes, 3 times/day. 8. Patient requires mobile SCDs to reduce risk of developing DVT following PRASHANTH. Patient will use the mobile SCDs for 30 days postoperatively. Hip Precautions: No posterior hip precautions. Bathing assistance by home health aide twice weekly if Medicare patient. Occupational Therapy: Evaluation for assistive devices and ADL training. Wound Care: Keep incision dry & covered with Tegaderm until first visit with Dr. Perez Anticoagulation Orders: Enteric Coated Aspirin 325 mg po bid x 6 weeks from date of surgery Follow-up:Call for an appointment with Dr. Perez in 1 week after discharged from hospital at DME Orders: KIRK, 3-in-1 Commode, Mobile SCDs SAVANNAH HERRERA PA-C Sep 15, 2016 15:53
[2016-09-15] MEDS ORDERED: ASPI325T32 PO (15:55)
[2016-09-15] MEDS ORDERED: PANT40TA4 PO (15:55)
[2016-09-15 19:27] VITALS: BP 113/56; RESP 18
[2016-09-15] MEDS: HYDROmorphONE 1 MG/ML SYG IV PRN (20:40)
[2016-09-15] MEDS: morphine (ER) 15 MG TAB PO SCH (21:33)
[2016-09-15] MEDS: NACL 0.9% 3 ML SYG IV SCH (21:38)
[2016-09-16] MEDS: traMADol 50 MG TAB PO SCH ×2 (00:43→06:00)
[2016-09-16] MEDS: ALBUTEROL/IPRATROPIUM (NEB) 3 ML AMP HHN SCH ×2 (02:00→08:00)
[2016-09-16] MEDS: LACTATED RINGER'S 1,000 ML IV SCH (03:30)
[2016-09-16 05:44] LABS: HEMATOCRIT 28.9 % (37.0-47.0); HEMOGLOBIN 8.9 g/dl (12.0-16.0)
[2016-09-16] MEDS: LEVOTHYROXINE 25 MCG TAB PO SCH (06:11)
[2016-09-16] MEDS: HYDROCODONE/APAP (5/325) TAB PO PRN (06:12)
[2016-09-16] MEDS: PANTOPRAZOLE (EC) 40 MG TAB PO SCH (06:12)
[2016-09-16 06:23] LABS: POTASSIUM 3.7 mmol/L (3.5-5.1)
[2016-09-16 06:25] LABS: CREATININE 0.86 mg/dl (0.44-1.00)
[2016-09-16 06:26] LABS: CALCIUM 8.8 mg/dl (8.4-10.2)
[2016-09-16 08:47] VITALS: BP 143/67; RESP 18
--- NOTE | 2016-09-16 09:03 | PN ---
Date/Time of Note Date/Time of Note DATE: 09/16/16 TIME: 09:01 Assessment/Plan Lines/Catheters IV Catheter Type (from Nrsg): Saline Lock Carter in Place (from Nrsg): No Assessment/Plan Assessment/Plan Stable POD #3, s/p left anterior PRASHANTH -pain meds as needed -ASA/SCDs -OOB with PT -dressing changed -d/c home today -follow up with Dr. Perez in the office in 1 week -follow up with her pain management doctor regarding her pain medication prescriptions/management as pre-operatively discussed Subjective 24 Hr Interval Summary No acute overnight events. Denies significant pain. Progressing well with PT. VSS, afebrile. Will plan to go home today. Exam/Review of Systems Vital Signs Vitals Vital Signs Date Time Temp Pulse Resp B/P Pulse Ox O2 Delivery O2 Flow Rate FiO2 09/16/16 08:47 98.4 75 18 143/67 93 09/15/16 20:47 21 09/13/16 20:10 Nasal Cannula 2.0 Intake and Output 09/15/16 09/15/16 09/16/16 15:00 23:00 07:00 Intake Total 1900 ml 300 ml Balance 1900 ml 300 ml Exam Free Text/Dictation Dressing dry Incision clean, dry, and intact without redness or drainage 5/5 Quadriceps, Tibialis Anterior, EHL, Gastroc, Soleus, Peroneals Normal sensation Palpable DT/PT, CR <2 sec No distal edema Results Result Diagram: 09/16/16 0420 09/16/16419 SAVANNAH HERRERA PA-C Sep 16, 2016 09:03
[2016-09-16] MEDS: ASPIRIN (EC) 325 MG TAB PO SCH (09:10)
[2016-09-16] MEDS: DOCUSATE SODIUM 100 MG CAP PO SCH (09:10)
[2016-09-16] MEDS: GABAPENTIN 300 MG CAP PO SCH (09:11)
[2016-09-16] MEDS: TOBRAMYCIN 0.3% 5 ML OPH RIGHT EYE SCH (09:12)
[2016-09-16] MEDS: ESCITALOPRAM 10 MG TAB PO SCH (09:12)
[2016-09-16] MEDS: morphine (ER) 30 MG TAB PO SCH (09:13)
[2016-09-16] MEDS: SALMETEROL/FLUTICASONE 250/50 INHA INH SCH (09:15)
--- NOTE | 2016-09-16 10:12 | CONS ---
Date/Time of Note Date/Time of Note DATE: 09/16/16 TIME: 10:08 Assessment/Plan Assessment/Plan Chief Complaint/Hosp Course #1 she is 3 days postop left total hip replacement. #2 her right eye is much improved. I was concerned that she may have a corneal abrasion; however, she is not having pain this morning and overall feels better. I will remove the right eye patch but will continue Tobrex eyedrops. #3 COPD , she is not wheezing today and overall feels better. She can be discharged home today. She will follow up with her PCP and Dr Perez next week .. Problems: Consultation Date/Type/Reason Admit Date/Time Sep 13, 2016 at 05:37 Type of Consultation: medicine 24 HR Interval Summary Free Text/Dictation She is feeling better today. She denies shortness of breath. She is not wheezing. Constitutional: improved, no complaints Exam/Review of Systems Vital Signs Vitals Vital Signs Date Time Temp Pulse Resp B/P Pulse Ox O2 Delivery O2 Flow Rate FiO2 09/16/16 08:47 98.4 75 18 143/67 93 09/15/16 20:47 21 09/13/16 20:10 Nasal Cannula 2.0 Intake and Output 09/15/16 09/15/16 09/16/16 15:00 23:00 07:00 Intake Total 1900 ml 300 ml Balance 1900 ml 300 ml Exam Constitutional: alert, oriented, well developed Respiratory: clear to auscultation, normal air movement Cardiovascular: regular rate and rhythm Musculoskeletal: nl extremities to inspection Results Result Diagram: 09/16/16 0420 09/16/16 0420 Results 24 hrs Laboratory Tests Test 09/16/16 04:20 Hemoglobin 8.9 L Hematocrit 28.9 L Sodium Level 141 Potassium Level 3.7 Chloride Level 102 Carbon Dioxide Level 27 Anion Gap 16 Blood Urea Nitrogen 15 Creatinine 0.86 Glucose Level 112 Calcium Level 8.8 Medications Medications Current Medications Lactated Ringer's (Lr) 1,000 ml @ 100 mls/hr Q10H IV Last administered on t 06:24; Admin Dose 100 MLS/HR; Start 09/13/16 at 05:30 Miscellaneous Information 1 ea NOTE XX ; Start 09/13/16 at 07:00; Stop 09/17/16 at 06:59 Escitalopram Oxalate (Lexapro) 30 mg DAILY PO Last administered on 09/16/16 09: 12; Admin Dose 30 MG; Start 09/14/16 at 09:00 Gabapentin (Neurontin) 600 mg DAILY PO Last administered on 09/16/16 09:11; Admin Dose 600 MG; Start 09/14/16 at 09:00 Gabapentin (Neurontin) 900 mg QHS PO Last administered on 09/15/16 21:33; Admin Dose 900 MG; Start 09/13/16 at 21:00 Tizanidine HCl (Zanaflex) 8 mg QHS PRN PO SPASTICITY; Start 09/13/16 at 10:00 Tramadol HCl (Ultram) 50 mg Q6 PO Last administered on 09/16/16 00:43; Admin Dose 50 MG; Start 09/13/16 at 12:00; Stop 09/16/16 at 11:59 Acetaminophen/ Hydrocodone Bitart ([place] (5/325)) 1 tab Q4H PRN PO PAIN LEVEL 1 -3; Start 09/13/16 at 10:00 Acetaminophen/ Hydrocodone Bitart ([place] (5/325)) 2 tab Q4H PRN PO PAIN LEVEL 4 -7 Last administered on 09/16/16 06:12; Admin Dose 2 TAB; Start 09/13/16 at 10:00 Hydromorphone HCl (Dilaudid) 1 mg Q3H PRN IV PAIN LEVEL 8-10 Last administered on 09/15/16 20:40; Admin Dose 1 MG; Start 09/13/16 at 10:00 Ondansetron HCl (Zofran Inj) 4 mg Q6H PRN IV NAUSEA AND/OR VOMITING; Start 09/13 at 10:00 Bisacodyl (Dulcolax Supp) 10 mg Q12H PRN [place] CONSTIPATION; Start 09/13/16 at 10: 00 Magnesium Hydroxide (Milk Of Mag) 30 ml BID PRN PO CONSTIPATION; Start 09/13/16 at 10:00 Sodium Biphosphate/ Sodium Phosphate (Fleet Enema) 133 ml DAILY PRN [place] CONSTIPATION; Start 09/13/16 at 10:00 Docusate Sodium (Colace) 100 mg BID PO Last administered on 09/16/16 09:10; Admin Dose 100 MG; Start 09/13/16 at 21:00 Diphenhydramine HCl (Benadryl) 25 mg Q6H PRN PO PRURITUS; Start 09/13/16 at 10: 00 Aspirin (Ecotrin) 325 mg BID PO Last administered on 09/16/16 09:10; Admin Dose 325 MG; Start 09/14/16 at 09:00 Pantoprazole (Protonix Tab) 40 mg BID@06,18 PO Last administered on 09/16/16 06 :12; Admin Dose 40 MG; Start 09/13/16 at 18:00 Morphine Sulfate (Ms Contin (Er)) 15 mg QPM PO Last administered on 09/15/16 21 :33; Admin Dose 15 MG; Start 09/13/16 at 21:00 Tobramycin Sulfate (Tobrex 0.3% Oph Drop) 1 drop QID RIGHT EYE Last administered on 09/16/16 09:12; Admin Dose 1 DROP; Start 09/13/16 at 16:30 Morphine Sulfate (Ms Contin (Er)) 30 mg QAM PO Last administered on 09/16/16 09 :13; Admin Dose 30 MG; Start 09/14/16 at 09:00 Albuterol (Ventolin Hfa) 1 puff Q4H PRN INH SHORTNESS OF BREATH; Start 09/14/16 at 20:30 Salmeterol Xinafoate/ Fluticasone (Advair 250/50 Diskus) 1 inh BID INH Last administered on 09/16/16 09:15; Admin Dose 1 INH; Start 09/15/16 at 10:30 BRETT DOHERTY MD Sep 16, 2016 10:11
--- NOTE | 2016-09-16 12:14 | DS ---
DATE OF ADMISSION: 09/13/2016 DATE OF DISCHARGE: 09/16/2016 CONDITION ON DISCHARGE: Stable. ADMITTING DIAGNOSIS: Left hip osteoarthritis. DISCHARGE DIAGNOSIS: Status post left anterior total hip arthroplasty. PROCEDURE PERFORMED: Left anterior total hip arthroplasty. HOSPITAL COURSE: This is a 66-year-old female who was seen in the clinic complaining of left hip pain. She has concomitant back pathology as well as chronic pain syndrome and x-rays demonstrated osteoarthritis of the left hip. It was thought at that point she would benefit from a left anterior total hip arthroplasty. On 09/13/2016 the patient was admitted and taken to the operating room where she underwent a left anterior total hip arthroplasty. No intraoperative complications. The patient tolerated procedure well. She was taken to the recovery room in stable condition. Pain was controlled with her preoperative oral pain medication regimen. She was started on aspirin and SCDs for DVT prophylaxis. She remained hemodynamically stable and neurovascularly intact throughout her hospital stay. She began physical therapy on postoperative day 0 and continued to make good progress. She was deemed stable for discharge on postoperative day #3. Prior to discharge, the incision was inspected and noted to be clean, dry and intact. Dressing changes were done prior to patient going home. LABORATORY ANALYSIS: Hemoglobin 8.9, hematocrit 28.9. Chemistry panel was within normal limits. DISCHARGE MEDICATIONS: 1. [place] 5/325 mg. 2. Tramadol 50 mg. 3. Aspirin 325 mg. 4. Protonix 40 mg. 5. In addition, the patient is to resume all of her normal home medications including her medication for her chronic pain syndrome. DISCHARGE INSTRUCTIONS: The patient will be discharged home in stable condition. She will resume her normal diet. Activity includes weightbearing as tolerated on the left lower extremity. She is to begin physical therapy with home health. The patient will be discharged home with the medications noted above. She is to resume all of her normal home medication. Additionally, the patient is to seek for pain prescriptions from her pain management doctor when appropriate. The patient is to call the office or go to the emergency room for any concerns including increased redness, swelling, drainage or fever or any concern regarding the operation or site of incision. FOLLOWUP: The patient is to followup in the office on 09/23/2016. Dictated By: SAVANNAH VIVAS/COURTNEY Conf#: [id number] [facility]#: [id number] MTDD
== END 2016-09-16 11:20 | disposition home health service (06) | DRG 470 ==
LOC: REC 05:37 → MS1 11:06
PROVIDERS: ADMIT Orthopaedic Surgery; ATTEND Orthopaedic Surgery
PROC: 0SRB04A Replacement of Left Hip Joint with Ceramic on Polyethylene Synthetic Substitute, Uncemented, Open Approach (ICD-10-PCS; principal; 2016-09-13 07:00)
DX: M16.12 Unilateral primary osteoarthritis, left hip (principal); E80.1 Porphyria cutanea tarda; J44.9 Chronic obstructive pulmonary disease, unspecified; Z87.891 Personal history of nicotine dependence; E89.0 Postprocedural hypothyroidism; E53.8 Deficiency of other specified B group vitamins; E55.9 Vitamin D deficiency, unspecified; K29.50 Unspecified chronic gastritis without bleeding; Z90.49 Acquired absence of other specified parts of digestive tract; F41.9 Anxiety disorder, unspecified; I25.10 Atherosclerotic heart disease of native coronary artery without angina pectoris; G89.4 Chronic pain syndrome
CPT/HCPCS: 72170; 73530; 80048; 81003; 85014; 85018; 86850; 86900; 86901; 86920; 87081; 87086; 88304; 88311; 94640; 94664; 97110; 97116; 97163; 97167; 97530; Z7610; C1776; C9290; J0131; J0171; J0690; J0735; J1100; J1170; J1885; J2250; J2274; J2405; J2710; J3010; J3370; J7120

== ENCOUNTER → 2016-09-23 | Outpatient (CLI) | payer MEDICARE, BC ==
[~2016-09-23] MED LIST changes: +ASPI325T32 PO; -MELOXICAM 15 MG TAB PO ONE; +PANT40TA4 PO; -PREGABALIN 300 MG PO X1 PO ONE; +TIZA4TAB PO; -TRANEXAMIC ACID 680 MG in SOD CHLORIDE 0.9% 93.2 ML IV ONE; -VANCOMYCIN 1 GM/NS 250 ML X1 BEFORE INCISION IVPB ONE; -oxyCODONE (CR) 10 MG TAB [oxyCONTIN] X1 DOSE PO ONE; -traMADOL 50 MG TAB X 1 DOSE PO ONE
--- NOTE | 2016-09-23 10:54 | HKNOTE ---
DATE OF SERVICE: 09/23/2016 INTERVAL HISTORY: The patient presents today for her first postoperative evaluation. She is 10 day s status post left anterior total hip arthroplasty. She is doing well overall. She has been taking aspirin twice daily for DVT prophylaxis. Her pain has been well managed with her pain management r myra. She denies any fevers or chills. She is doing physical therapy with home health. She pres ents today for her first postoperative evaluation. PHYSICAL EXAMINATION: Today, she is alert and oriented x4 in no acute distress. Exam of incision d emonstrates it to be clean, dry, and intact. [place] are in place. There is no erythema or warmth noted. There is no significant soft tissue swelling. Homans sign is negative. Compartments are so ft. Neurovascular status intact distally. IMAGING: X-rays of left hip were obtained today and reviewed by me. They demonstrate good anatomic alignment with no fractures or dislocations identified. ASSESSMENT: 10 days status post left anterior total hip arthroplasty. PLAN: The shaka were removed today, and Steri-Strips were applied. She is to continue physical t herapy with home health and transition to outpatient physical therapy program as needed. Additional ly, she is to continue aspirin twice daily for DVT prophylaxis. She will continue her pain medicine regimen through her pain management doctor. Additionally, I encouraged her to continue with smokin g cessation. We will see her back in 4 weeks for repeat evaluation. Dictated By: SAVANNAH CACERES for [facility] VIVAS/COURTNEY Conf#: [id number] DID#: [id number]
--- NOTE | 2016-09-23 11:55 | RADRPT ---
PROCEDURE: XR Pelvis. CLINICAL INDICATION: Hip pain TECHNIQUE: Single AP view performed. COMPARISON: 09/13/2016 FINDINGS: There is a left total hip replacement. There is no evidence of loosening of the prosthesis. No hardw are failure identified. There is mild right hip osteoarthrosis. This is associated with joint space narrowing, subchondral s clerosis and osteophytosis. There is lower lumbar degenerative disk disease. There is normal osseous mineralization. No fractures or osseous lesions are identified. The soft tissues are unremarkable . IMPRESSION: Left total hip replacement. Mild right hip osteoarthrosis. Lower lumbar degenerative disk disease RPTAT: HGDB .Nickolas Esparza MD, MD Date Time Electronically viewed and signed by .Nickolas Esparza MD, on 09/23/2016 11:54 .B/
== END | disposition home or self-care (01) ==
LOC: HKI 09:09
PROVIDERS: ATTEND Orthopaedic Surgery
DX: Z47.1 Aftercare following joint replacement surgery (principal); Z96.642 Presence of left artificial hip joint
CPT/HCPCS: 73502

== ENCOUNTER → 2016-10-05 | Outpatient (CLI) | payer MEDICARE, BC ==
--- NOTE | 2016-10-05 11:46 | HKNOTE ---
DATE OF SERVICE: 10/05/2016 INTERVAL HISTORY: The patient presents today for a followup evaluation on her left hip. She is leslie roximately 3 weeks status post left anterior total hip arthroplasty. She is doing very well overall in regards to her left hip. We did receive a call from Dr. Blank, her turret press operator, who wanted us to evaluate the patient today. She is currently being worked up for anemia as well as a respiratory infection and was noted to have elevated inflammatory markers. Preoperatively, her inflammatory ma rkers were elevated as well; however, they have increased since the surgery. She is currently being treated for a respiratory infection with antibiotics and does have some mild associated constitutio nal symptoms which appear to be related to her cough and respiratory complaints. They are improving overall. The patient denies any significant hip pain, redness, swelling or warmth. She is doing v shadi well from a hip standpoint, is happy with her recovery thus far overall. She was advised to com e in today for evaluation, referred by her turret press operator. PHYSICAL EXAMINATION: On exam today, she is alert and oriented x4 and in no acute distress. She is ambulating without any assistive device. Exam of the incision demonstrates to be clean, dry, intac t and well healing. There is no pus or drainage noted. There is no evidence of dehiscence. There is no erythema or warmth. There is no significant soft tissue swelling. She has no pain with passi ve range of motion of the left hip. The compartments are otherwise soft. She is able to straight l eg raise without any discomfort. She is neurovascularly intact distally. ASSESSMENT: Approximately 3 weeks status post left anterior total hip arthroplasty, doing well. PLAN: The patient was referred to us for an evaluation by her turret press operator. She is currently undergoi ng antibiotic therapy for upper respiratory infection as well as treatment of some iron deficiency a nemia, but there appears to be no evidence of any infection of the left hip at this time. Her infla mmatory markers were elevated prior to surgery and continued to be elevated which is something that we will continue to monitor closely. We discussed possible hip aspiration, confirmatory diagnosis; however, given the recent surgery and increased risk of performing the procedure we will hold off fo r now. The patient denies any pain in the left hip and is happy overall. Therefore, we will contin ue to monitor her symptoms for the time being. We would like to her inflammatory markers checked in 1 month to follow their trends. She should con tinue to undergo treatment for respiratory infection and anemia through her primary care doctor. We will see her back in 4 weeks for repeat evaluation. If the patient has any concerns at any time sh e is to call the office. Dictated By: SAVANNAH CACERES for [facility] VIVAS/COURTNEY Conf#: [id number] DID#: [id number]
== END | disposition home or self-care (01) ==
LOC: HKI 09:22
PROVIDERS: ATTEND Orthopaedic Surgery
DX: Z47.1 Aftercare following joint replacement surgery (principal); Z96.642 Presence of left artificial hip joint

== ENCOUNTER → 2016-10-19 | Outpatient (CLI) | payer MEDICARE, BC ==
--- NOTE | 2016-10-19 13:47 | RADRPT ---
PROCEDURE: XR Pelvis and left Hip. CLINICAL INDICATION: Left hip pain. Postop. TECHNIQUE: 2 views of the pelvis and left hip are available for review. COMPARISON: No prior studies are available for comparison. FINDINGS: Patient is status post total left hip arthroplasty. Hardware appears intact and alignment is anatom ic. There is no evidence of hardware failure or fracture.. The right femoral acetabular joint and sacroiliac joints are within normal limits. The soft tissues are within normal limits . IMPRESSION: 1. Total left hip arthroplasty with intact hardware in anatomic alignment. RPTAT: KK .Saul Hudson MD, MD Date Time Electronically viewed and signed by .Saul Hudson MD, on 10/19/2016 13:47 .B/
== END | disposition home or self-care (01) ==
LOC: HKI 09:51
PROVIDERS: ATTEND Orthopaedic Surgery
DX: Z47.1 Aftercare following joint replacement surgery (principal); M16.12 Unilateral primary osteoarthritis, left hip; Z96.642 Presence of left artificial hip joint
CPT/HCPCS: 73502

== ENCOUNTER → 2017-02-01 | Outpatient (CLI) | payer MEDICARE, BC | END | disposition home or self-care (01) | LOC: HKI 08:27 | PROVIDERS: ATTEND Orthopaedic Surgery | DX: Z47.1 Aftercare following joint replacement surgery (principal); Z96.652 Presence of left artificial knee joint; J44.9 Chronic obstructive pulmonary disease, unspecified; Z88.0 Allergy status to penicillin; Z88.2 Allergy status to sulfonamides | CPT/HCPCS: G0463 ==